=== PATIENT | male | born 1970 | race Caucasian/White ===

== ENCOUNTER 2020-09-28 09:59 | Emergency (ER) | payer OTHER ==
[~2020-09-28] VITALS: Ht 182.9 cm; Wt 156.5 kg
--- NOTE | 2020-09-28 10:47 | NUR ---
WALKED BACK TO ROOM.
--- NOTE | 2020-09-28 11:07 | NUR ---
KEYSHAWN IN ROOM. PT STS CHEST TIGHTNESS NO WHEEZING NOT PAIN WORSE ON EXERTION SATTING 88 ON RA AT HOME AFTER WALKING 5 MIN. HERE LAYING FLAT NO SOB/SATS FINE CHARTED. COVID SX X9 DAYS, SOME DIARRHEA, OCCASIONAL COUGH. STARTED ALBUTEROL, PREDNISONE BY TELE DOC MONDAY W LITTLE IMPROVEMENT.
--- NOTE | 2020-09-28 11:44 | NUR ---
XR SHOWS BILAT PNA, LABS PENDING.
[2020-09-28 11:53] LABS: BASOPHILS % (AUTO) 0 % (0-1); EOSINOPHILS % (AUTO) 0 % (1-7); LYMPHOCYTES % (AUTO) 18 % (22-44); MEAN CORPUSCULAR HEMOGLOBIN 29.3 pg (27.5-34.5); MEAN CORPUSCULAR HGB CONC 33.7 g/dL (33.2-36.2); MEAN PLATELET VOLUME 8.6 fL (7.4-10.4); MONOCYTES % (AUTO) 6 % (2-9); NEUTROPHILS % (AUTO) 76 % (42-75); PLATELET COUNT 177 x10^3/uL (130-400); RED BLOOD COUNT 5.13 x10^6/uL (4.38-5.82); RED CELL DISTRIBUTION WIDTH 13.7 % (9.4-14.8)
[2020-09-28 11:55] LABS: MD NO
[2020-09-28 12:02] LABS: D-DIMER (DIC) 0.47 ug/mlFEU (0.00-0.52); PROTIME 10.6 Seconds (9.6-11.5)
[2020-09-28 12:05] LABS: ALBUMIN 3.5 g/dL (3.4-5.0); ANION GAP 10 mmol/L (5-15); CALCIUM 8.3 mg/dL (8.5-10.1); CHLORIDE 107 mmol/L (98-107)
[2020-09-28 12:12] LABS: ALANINE AMINOTRANSFERASE 64 U/L (12-78); ALKALINE PHOSPHATASE 80 U/L (45-117); BILIRUBIN,TOTAL 0.5 mg/dL (0.2-1.0); C-REACTIVE PROTEIN, QUANT 0.31 mg/dL (0.02-0.49); CREATININE 0.96 mg/dL (0.7-1.3); TOTAL PROTEIN 7.6 g/dL (6.4-8.2); TROPONIN I < 0.015 ng/mL (0.000-0.045)
[2020-09-28 12:43] VITALS: BP 166/82
== END 2020-09-28 12:45 | disposition home or self-care (01) ==
LOC: ED 11:57
DX: U07.1 COVID-19 (principal); J12.9 Viral pneumonia, unspecified; I10 Essential (primary) hypertension; R94.31 Abnormal electrocardiogram [ECG] [EKG]
CPT/HCPCS: 36415; 71045; 80053; 82728; 83605; 83615; 84145; 84484; 85025; 85049; 85379; 85384; 85610; 85730; 86140; 87040; 93005; 99285

== ENCOUNTER → 2020-11-24 | Outpatient (CLI) | payer OTHER | END | disposition home or self-care (01) | LOC: CVU 09:43 | PROVIDERS: ATTEND Internal Medicine Cardiovascular Disease | DX: I10 Essential (primary) hypertension (principal) | CPT/HCPCS: 93306; 93356 ==